=== PATIENT | male | born 2000 | race Two or more races ===

== ENCOUNTER 2023-12-30 23:58 | Emergency (ER) | payer OTHER ==
[~2023-12-30] VITALS: Ht 160 cm; Wt 54.9 kg
[2023-12-31] MEDS ORDERED: HYOSCYAMINE SULFATE 0.125 MG TAB.SUBL SL ONE (01:15)
[2023-12-31] MEDS ORDERED: KETOROLAC TROMETHAMINE 60 MG VIAL IM STA (01:15)
[2023-12-31] MEDS ORDERED: MAGNESIUM HYDROXIDE 400 MG/5 ML ML PO STA (01:16)
== END 2023-12-31 01:50 | disposition home or self-care (01) ==
LOC: ER 23:59
DX: M54.50 Low back pain, unspecified (principal); R12 Heartburn; Z88.0 Allergy status to penicillin

== ENCOUNTER 2024-01-28 06:02 | Emergency (ER) | payer OTHER ==
[~2024-01-28] VITALS: Ht 160 cm; Wt 54.4 kg
[2024-01-28 08:59] LABS: HEMATOCRIT 44.4 % (39.0-48.0); HEMOGLOBIN 16.1 g/dL (13-16.00); MEAN CELL VOLUME 83.8 fL (80.0-100.00); MEAN CORPUSCULAR HEMOGLOBIN 30.4 pg (27.00-32.0); MEAN CORPUSCULAR HGB CONC 36.2 g/dl (32.0-36.0); PLATELET COUNT 167 K/uL (150-450); RED CELL DISTRIBUTION WIDTH 13.4 % (11.5-14.5)
[2024-01-28 09:12] LABS: CREATININE SERUM 0.83 mg/dL (0.70-1.30); GFR 113.82; POTASSIUM 4.16 mEq/L (3.5-5.1)
[2024-01-28 09:22] LABS: PH,URINE 7.5 (5.0-8.0); URINE APPEARANCE Clear; URINE BILIRRUBIN Negative (NEGATIVE); URINE BLOOD Negative; URINE COLOR Yellow; URINE GLUCOSE Negative (NEGATIVE); URINE KETONE Negative (NEGATIVE); URINE LEUKOCYTE Negative; URINE NITRATE Negative; URINE PROTEIN Negative (NEGATIVE); URINE UROBILINOGEN 0.2 E.U./dl
[2024-01-28 09:30] LABS: URINE BACTERIA 1.2 uL (0.0-1933); URINE RBC 0.3 uL (0.0-20.8); URINE WBC 0.4 uL (0.0-23.2)
== END 2024-01-28 10:27 | disposition home or self-care (01) ==
LOC: ER 06:02
PROVIDERS: Emergency Medicine
DX: R53.81 Other malaise (principal); R30.0 Dysuria; Z20.822 Contact with and (suspected) exposure to COVID-19; Z88.0 Allergy status to penicillin

== ENCOUNTER 2024-02-27 11:40 | Emergency (ER) | payer OTHER ==
[~2024-02-27] VITALS: Ht 160 cm; Wt 54.4 kg
[2024-02-27] MEDS ORDERED: 0.9 % SODIUM CHLORIDE 500 ML IV ONE (13:45)
[2024-02-27] MEDS ORDERED: ACETAMINOPHEN 500 MG GEL..CAP PO ONE ×2 (13:45→13:52)
[2024-02-27] MEDS ORDERED: FAMOTIDINE/PF 20 MG/2 ML VIAL IV PUSH ONE (13:45)
[2024-02-27] MEDS ORDERED: FAMOTIDINE/PF 20 MG/2 ML VIAL ONE (13:52)
[2024-02-27 14:36] LABS: HEMATOCRIT 45.1 % (39.0-48.0); MEAN CELL VOLUME 84.8 fL (80.0-100.00); MEAN CORPUSCULAR HEMOGLOBIN 30.4 pg (27.00-32.0); MEAN CORPUSCULAR HGB CONC 35.9 g/dl (32.0-36.0); PLATELET COUNT 196 K/uL (150-450); RED BLOOD COUNT 5.32 M/uL (4.00-6.00); RED CELL DISTRIBUTION WIDTH 13.4 % (11.5-14.5)
[2024-02-27 14:48] LABS: HEMOGLOBIN 16.2 g/dL (13-16.00)
[2024-02-27 14:50] LABS: CREATININE SERUM 1.02 mg/dL (0.70-1.30); GFR 89.73; POTASSIUM 4.07 mEq/L (3.5-5.1)
[2024-02-27] MEDS ORDERED: ZEGERID 20 MG1 EACH PO (15:56)
== END 2024-02-27 17:11 | disposition home or self-care (01) ==
LOC: ER 11:42
PROVIDERS: General Practice
DX: K29.70 Gastritis, unspecified, without bleeding (principal); R53.81 Other malaise; Z88.0 Allergy status to penicillin